=== PATIENT | female | born 1965 | race Caucasian/White ===

== ENCOUNTER → 2017-07-26 | Outpatient (CLI) | payer OTHER ==
[2017-07-26 12:12] LABS: BASO % 0.6 %; BASO ABS # 0.03 K/uL (0-0.2); COMPLETE YES; EOS % 1.9 %; HEMATOCRIT 40.9 % (37-47); LYMPH % 33.9 %; LYMPH ABS # 1.75 K/uL (1.2-3.4); MEAN CELL VOLUME 89.9 fL (80-100); MEAN CORPUSCULAR HEMOGLOBIN 30.3 pg (25-34); MEAN CORPUSCULAR HGB CONC 33.7 g/dl (32-36); MONO % 7.6 %; PLATELET COUNT 215 K/uL (130-400); RED BLOOD COUNT 4.55 M/uL (4.2-5.4); WHITE BLOOD COUNT 5.16 K/uL (4.8-10.8)
[2017-07-26 12:39] LABS: BLOOD UREA NITROGEN 11 mg/dl (7-18); BUN/CREATININE RATIO 16.3 (10-20); CALCIUM 8.7 mg/dl (8.5-10.1); CARBON DIOXIDE 24 mmol/L (21-32); CHLORIDE 105 mmol/L (98-107); CREATININE 0.67 mg/dl (0.60-1.20); GLUCOSE 77 mg/dl (70-99); POTASSIUM 3.8 mmol/L (3.5-5.1); SODIUM 138 mmol/L (136-145)
[2017-07-26 12:42] LABS: ALKALINE PHOSPHATASE 71 U/L (45-117); ALT/SGPT 23 U/L (12-78); AST/SGOT 15 U/L (15-37)
== END | disposition home or self-care (01) ==
LOC: C.CPL 11:21
PROVIDERS: ATTEND Orthopaedic Surgery
DX: Z01.812 Encounter for preprocedural laboratory examination (principal); M25.511 Pain in right shoulder

== ENCOUNTER 2017-08-06 11:48 | Day surgery (SDC) | payer OTHER ==
[2017-08-03 09:34] VITALS: BMI 41.0
--- NOTE | 2017-08-05 17:04 | HISTORY & PHYSICAL EXAMINATION ---
DATE OF ADMISSION: 08/06/2017 REASON FOR CONSULTATION: Postoperative adhesive capsulitis of the right shoulder. 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 She had 2 surgeries on her shoulder by Dr. Garner with [facility]. Unfortunately, she is still having a lot of pain and tightness with her shoulder. Clinically I diagnosed her with adhesive capsulitis of her shoulder and sent her for an MRI. The MRI confirmed the capsulitis. She continues to have a lot of pain in her shoulder and has elected to proceed with a manipulation under anesthesia. PAST MEDICAL HISTORY: Hypertension. MEDICATIONS: Amlodipine 5 mg daily, Lisinopril 20 mg daily. PAST SURGICAL HISTORY: Significant for shoulder arthroscopy x2 by Dr. Garner, cholecystectomy, hysterectomy and knee arthroscopy. ALLERGIES: CODEINE. FAMILY HISTORY: Noncontributory. SOCIAL HISTORY: She works at [employer]. She denies any alcohol, tobacco or IV drug use. REVIEW OF SYSTEMS: She complains of right shoulder tightness and pain. All other pertinent review of systems are negative. PHYSICAL EXAMINATION: GENERAL: She is awake, alert and oriented x3. She is in no apparent distress. She is very pleasant. HEENT: Pupils are equal, round and reactive to light. Extraocular motion intact. Oral mucosa is pink and moist. HEART: Regular rate per radial pulse. LUNGS: Mesha symmetrically bilaterally with no audible breath sounds. MUSCULOSKELETAL: On physical examination of the right shoulder actively she has about 120 degrees of forward elevation, 120 degrees of abduction. She has 30 degrees of external rotation on her right compared to 80 degrees on her left. While lying supine I can get her to about 80 degrees of abduction, 60 degrees of external rotation and 10 degrees of internal rotation. She has pain and tightness at end ranges of motion. She has 5/5 muscle strength throughout. IMAGING: MRI of the shoulder shows some tendinitis of the rotator cuff. No full thickness tear. The biceps tendon is located within the groove. There is no glenohumeral arthritis. IMPRESSION: Postoperative adhesive capsulitis of the right shoulder. PLAN: Will proceed with a manipulation under anesthesia of the right shoulder. Postoperatively, she will be given an intra-articular cortisone injection and placed in an arm sling. She will be discharged to home with oral pain medications.
[~2017-08-06] VITALS: Ht 170.2 cm; Wt 119.1 kg
[~2017-08-06 11:48] MED LIST: ACETAMINOPHEN 500 MG TAB PO SCH; AMLO-110 PO; BUPIVACAINE 0.25% 30 ML VIAL ONE; CLONIDINE HCL 100 MCG/ML SYRINGE ONE; EpINEphrine INJ 1MG/ML AMP 1 MG/ML AMP ONE; LACTATED RINGER'S 1000ML 1,000 ML IV SCH; LISI-725 PO; PRLSR20 PO; ROPIVACAINE 0.5% 5 MG/ML 30 ML VIAL ONE
--- NOTE | 2017-08-06 12:07 | History & Physical Bridge Note ---
H&P Re-Evaluation Bridge Note: I have examined the patient, reviewed the History & Physical and in the interval since the performance of the History & Physical I have noted the following changes of clinical significance: No changes noted
[2017-08-06] MEDS ORDERED: PHENYLEPHRINE 100MCG/ML 5ML SYR IV PRN (12:15)
[2017-08-06] MEDS ORDERED: MEPERIDINE HCL 25 MG/ML CARP IV PRN (12:15)
[2017-08-06] MEDS ORDERED: FENTANYL CITRATE INJ 50 MCG/1 ML 2 ML VIAL IV PRN ×2 (12:15→14:00)
[2017-08-06] MEDS ORDERED: ATROPINE SULFATE 0.1 MG/ML 5ML SYR IV PRN ×2 (12:15→14:00)
[2017-08-06] MEDS ORDERED: NALOXONE HCL 0.4 MG/1 ML VIAL/CARP IV PRN (12:15)
[2017-08-06] MEDS ORDERED: EpHEDrine SULFATE INJ 50 MG/ML AMP IV PRN ×2 (12:15→14:00)
[2017-08-06] MEDS ORDERED: FLUMAZENIL 0.1 MG/1 ML 10 ML VIAL IV PRN (12:15)
[2017-08-06] MEDS ORDERED: ONDANSETRON INJ 2 MG/ML 2 ML VIAL IV PRN ×3 (12:15→15:00)
[2017-08-06] MEDS ORDERED: LABETALOL HCL IV 5 MG/ML 20ML IV PRN (12:15)
[2017-08-06 12:16] VITALS: BP 153/84; PULSE 94; TEMP 36.5; O2SAT 97; Ht 170.2 cm; Wt 119.1 kg
[2017-08-06] MEDS ORDERED: MIDAZOLAM HCL 1 MG/ML 2ML VIAL ONE (13:02)
[2017-08-06] MEDS ORDERED: FENTANYL CITRATE INJ 50 MCG/1 ML 2 ML VIAL ONE (13:02)
[2017-08-06] MEDS ORDERED: METHYLPREDNISOLONE ACETATE 80 MG/ML VIAL ONE (14:22)
[2017-08-06] MEDS ORDERED: BUPIVACAINE 0.5 % 5 MG/1 ML MPF 30ML VIAL ONE (14:22)
[2017-08-06] MEDS ORDERED: FLUMAZENIL 0.1 MG/1 ML 10 ML VIAL IV ONE (14:27)
--- NOTE | 2017-08-06 14:49 | Anesthesiology Progress Note ---
Anesthesia Post Op Note Date & Time Aug 06, 2017 at 14:49 Vital Signs Pain Intensity: 0 Vital Signs Past 12 Hours Date Time Temp Pulse Resp B/P (MAP) Pulse Ox O2 Delivery O2 Flow Rate FiO2 08/06/17 14:45 36.5 82 16 137/85 96 Room Air 08/06/17 14:35 36.5 79 16 114/88 96 Room Air 08/06/17 14:28 36.5 88 14 132/83 100 Oxymask 7 08/06/17 13:41 78 20 124/69 (87) 98 Oxymask 10 08/06/17 12:16 36.5 94 20 153/84 (107) 97 Room Air Notes Mental Status: alert / awake / arousable, participated in evaluation Pt Amnestic to Procedure: Yes Nausea / Vomiting: adequately controlled Pain: adequately controlled Airway Patency, RR, SpO2: stable & adequate BP & HR: stable & adequate Hydration State: stable & adequate Anesthetic Complications: no major complications apparent
[2017-08-06] MEDS ORDERED: SODIUM CHLORIDE 0.9% 1000ML 1,000 ML IV SCH (14:52)
--- NOTE | 2017-08-06 14:52 | Discharge Instructions ---
Discharge Instructions Date of Service Aug 06, 2017. Admission Reason for Admission: Right Shoulder Adhesive Capsulitis Discharge Discharge Diagnosis / Problem: SAME ABOVE Discharge Goals Goal(s): Decrease discomfort, Improve function Activity Recommendations Activity Limitations: as noted below Lifting Limitations: gradually increase as tolerated Exercise/Sports Limitations: gradually increase as tolerated Shower/Bathe: tomorrow Driving or Machine Use: WHEN OUT OF THE SLING AND OFF OF PAIN MEDICATION . Instructions / Follow-Up Instructions / Follow-Up MEDICATIONS: * Resume previous medications unless instructed otherwise by your surgeon. * Always take pain medication on a full stomach or with food to avoid upset stomach. * Do not drink alcohol or drive while taking narcotics. * Ibuprofen or Tylenol may be taken if narcotic not needed. SPECIAL CARE INSTRUCTIONS: __ None _X_ Keep extremity elevated and iced x 48 hours; apply ice 20-30 minutes 8-10 times/day. May remove at night. _X_ Sling (REMOVE AFTER 24 HOURS) __24 hrs/day __ Remove at night __ Shoulder Immobilizer __ 24 hrs/day __ Remove at night __ Dressing __ Maintain until seen in office, may shower with plastic over site __ Remove dressings in 24-48 hours and then may shower __ Cover incisions with band-aids after showering __ Do not remove steri-strips Call physician if chills or temperature rises above 102 degrees or pain unrelieved by prescribed pain medications at . . Current Hospital Diet Patient's current hospital diet: Discharge Diet Recommended Diet: Regular Diet Fluid Restriction: None Procedures Procedures Performed: Manipulation and Injection Under Anesthesia Right Shoulder Pending Studies Studies pending at discharge: no Work Instructions Return To Work: 3 days (OR SOONER IF PAIN IS TOLERABLE ) Lifting Limitations: none Medical Emergencies . Who to Call and When: Medical Emergencies: If at any time you feel your situation is an emergency, please call 911 immediately. . Non-Emergent Contact Non-Emergency issues call your: Primary Care Provider Call Non-Emergent contact if: you have a fever, temperature is above 101.5 . "Provider Documentation" section prepared by Fausto Patel. . VTE Core Measure Inpt VTE Proph given/why not?: Treatment not indicated
[2017-08-06 15:00] VITALS: BP 111/92; PULSE 75; TEMP 36.6; O2SAT 95
[2017-08-06] MEDS ORDERED: HYDROCODONE/ACETAMOPHEN 5/325MG TAB PO PRN ×2 (15:00)
[2017-08-06 15:30] VITALS: BP 136/75; PULSE 80; TEMP 36.6; O2SAT 96
--- NOTE | 2017-08-06 16:18 | OPERATIVE REPORT ---
DATE OF OPERATION: 08/06/2017 PREOPERATIVE DIAGNOSIS: Adhesive capsulitis of the right shoulder. POSTOPERATIVE DIAGNOSIS: Same. PROCEDURE: Manipulation under anesthesia of the right shoulder. SURGEON: Dr. Oscar Sauer. PHARMACEUTICAL WORKER: None. ANESTHESIA: General with a right interscalene nerve block. COMPLICATIONS: None. CONDITION: Stable to PACU. INDICATIONS: Valentina is a pleasant 51-year-old female who recently underwent 2 shoulder arthroscopies an outside institution. Her shoulder was tight and painful. She presented to my office and I got an MRI, the MRI was essentially negative. I diagnosed her with postoperative adhesive capsulitis, and she elected to undergo manipulation under anesthesia. On 08/06/2017 she arrived at [facility] for the above procedure. She was seen in the preoperative holding area and the operative extremity was identified and signed. She was then given a right interscalene nerve block and taken back to the operating room, and kept on the litter. She was then put under general anesthesia. A time-out was done and the patient and the operative extremity was properly identified. DESCRIPTION OF PROCEDURE: On preoperative physical examination, she had about 80 degrees of abduction and 60 degrees of external rotation. A gentle manipulation was done under anesthesia. I was able to get full range of motion of her shoulder. The range of motion was equal to her contralateral side. I then injected the shoulder with 80 mg of Depo-Medrol and 5 mL of Marcaine. She was then placed in a regular arm sling and then taken to the postanesthesia care unit in stable condition. She tolerated the procedure well. I attest to the content of the Intraoperative Record and any orders documented therein. Any exception s are noted below.
== END 2017-08-06 16:00 | disposition home or self-care (01) ==
LOC: C.ACU 11:48
PROVIDERS: ATTEND Orthopaedic Surgery
DX: M75.01 Adhesive capsulitis of right shoulder (principal); I10 Essential (primary) hypertension; K21.9 Gastro-esophageal reflux disease without esophagitis; E66.01 Morbid (severe) obesity due to excess calories; Z68.41 Body mass index [BMI] 40.0-44.9, adult; Z79.899 Other long term (current) drug therapy; Z90.710 Acquired absence of both cervix and uterus; Z90.49 Acquired absence of other specified parts of digestive tract; Z88.5 Allergy status to narcotic agent